=== PATIENT | male | born 1970 | race Caucasian/White ===

== ENCOUNTER → 2023-11-12 14:55 | Outpatient (REF) | payer OTHER, SELFPAY | LOC: RAD 14:55 | PROVIDERS: ATTENDING PHYSICIAN Internal Medicine Rheumatology; FAMILY PHYSICIAN Physician Assistant Medical | DX: M79.641 Pain in right hand (principal); M79.642 Pain in left hand; L40.50 Arthropathic psoriasis, unspecified; M25.50 Pain in unspecified joint; M46.1 Sacroiliitis, not elsewhere classified | CPT/HCPCS: 72170; 73130 ==

== ENCOUNTER → 2024-07-08 09:18 | Outpatient (REF) | payer OTHER, SELFPAY | LOC: RAD 09:18 | PROVIDERS: ATTENDING PHYSICIAN Internal Medicine Rheumatology; FAMILY PHYSICIAN Physician Assistant Medical | DX: L40.50 Arthropathic psoriasis, unspecified (principal); L40.9 Psoriasis, unspecified; R97.20 Elevated prostate specific antigen [PSA]; Z85.831 Personal history of malignant neoplasm of soft tissue | CPT/HCPCS: 78306; A9503 ==